=== PATIENT | male | born 1965 | race Caucasian/White ===

== ENCOUNTER 2021-07-18 08:52 | Emergency (ER) | payer SELFPAY ==
[2021-07-18 09:14] VITALS: BP 163/99; PULSE 71; TEMP 97.8; BMI 29.2
[2021-07-18 11:23] LABS: BASO % 0.8 % (0-2.0); EOS % 0.1 % (0-4.5); HEMATOCRIT 43.9 % (35.4-49); HEMOGLOBIN 14.9 GM/dL (11.7-16.9); LYMPH % 16.3 % (8-40); MCH 30.7 pg (25.7-33.7); MEAN CELL VOLUME 90.3 fl (80-96); MEAN PLT VOLUME 8.9 fl (7.5-11.1); MONO % 5.7 % (3.8-10.2); NEUT % 77.1 % (42.8-82.8); PLATELET COUNT 213 10^3/uL (134-434); RBC 4.86 M/mm3 (4.00-5.60); RDW 13.6 % (11.9-15.9); WHITE BLOOD COUNT 8.7 K/mm3 (4.0-10.0)
[2021-07-18 11:48] LABS: CHLORIDE 106 mmol/L (98-107); SODIUM 140 mmol/L (136-145)
[2021-07-18 11:50] LABS: ALBUMIN 3.7 g/dl (3.4-5.0); ANION GAP 8 MMOL/L (8-16); BLOOD UREA NITROGEN 9.5 mg/dL (7-18); CALCIUM 8.9 mg/dL (8.5-10.1); CO2 26 mmol/L (21-32); GLUCOSE,RANDOM 114 mg/dL (74-106)
[2021-07-18 11:53] LABS: CREATININE 0.8 mg/dL (0.55-1.3); SGOT/AST 23 U/L (15-37)
[2021-07-18 11:54] LABS: SGPT/ALT 56 U/L (13-61)
[2021-07-18 11:55] LABS: BILIRUBIN,TOTAL 0.6 mg/dL (0.2-1); TOT PROT 7.1 g/dl (6.4-8.2)
[2021-07-18 11:56] LABS: ALK PHOS 89 U/L (45-117)
== END 2021-07-18 12:12 ==
LOC: JER 08:52
DX: R42 Dizziness and giddiness (principal); R53.83 Other fatigue
CPT/HCPCS: 36415; 80053; 84484; 85025; 93005; 93010; 99284-25

== ENCOUNTER 2022-04-06 15:06 | Emergency (ER) | payer OTHER ==
[2022-04-06 15:28] VITALS: RESP 16; TEMP 97.9; BMI 27.3
[2022-04-06] MEDS ORDERED: DEXTROSE 50%-WATER 25 GM/50 ML DISP.SYRIN ONE (16:17)
[2022-04-06] MEDS ORDERED: ACETAMINOPHEN 1000 MG/100 ML BAG IVPB ONE (16:53)
[2022-04-06] MEDS ORDERED: ONDANSETRON 4 MG/2 ML VIAL IVPUSH ONE (16:53)
[2022-04-06] MEDS ORDERED: ACETAMINOPHEN INJECTION 100 ML IVPB ONE (16:58)
[2022-04-06] MEDS ORDERED: ONDANSETRON 4 MG/2 ML VIAL ONE (16:58)
[2022-04-06 17:27] LABS: EPI CELLS 22 /uL (0-25.1); HYALINE CASTS 7 /uL (0-3.1); URINE APPEARANCE CLEAR; URINE BACTERIA 83 /uL (0-1359); URINE BILIRUBIN NEGATIVE (NEGATIVE); URINE COLOR YELLOW; URINE GLUCOSE (UA) 1+ (NEGATIVE); URINE KETONE 1+ (NEGATIVE); URINE LEUK ESTERASE TRACE (NEGATIVE); URINE NITRITE NEGATIVE (NEGATIVE); URINE PROTEIN 1+ (NEGATIVE); URINE RBC 450 /uL (0-23.9); URINE WBC 38 /uL (0-25.8)
[2022-04-06 17:49] VITALS: BP 133/84; PULSE 67
[2022-04-06 18:06] LABS: BASO % 0.9 % (0-2.0); HEMATOCRIT 44.7 % (35.4-49); HEMOGLOBIN 14.9 GM/dL (11.7-16.9); LYMPH % 11.7 % (8-40); MCH 30.1 pg (25.7-33.7); MCHC 33.3 g/dl (32.0-35.9); MEAN CELL VOLUME 90.3 fl (80-96); MEAN PLT VOLUME 8.8 fl (7.5-11.1); MONO % 1.6 % (3.8-10.2); NEUT % 85.8 % (42.8-82.8); PLATELET COUNT 285 10^3/uL (134-434); RBC 4.95 M/mm3 (4.00-5.60); RDW 13.5 % (11.9-15.9); WHITE BLOOD COUNT 10.2 K/mm3 (4.0-10.0)
[2022-04-06 18:20] LABS: ALBUMIN 3.8 g/dl (3.4-5.0); BLOOD UREA NITROGEN 16.7 mg/dL (7-18)
[2022-04-06 18:24] LABS: BILIRUBIN,TOTAL 0.6 mg/dL (0.2-1)
[2022-04-06 18:25] LABS: TOT PROT 7.5 g/dl (6.4-8.2)
[2022-04-06 18:38] LABS: YEAST RARE (NEGATIVE)
[2022-04-06] MEDS ORDERED: KETOROLAC TROMETHAMINE 15 MG/ML VIAL IVPUSH ONE (20:43)
[2022-04-06] MEDS ORDERED: KETOROLAC TROMETHAMINE 15 MG/ML VIAL ONE (21:09)
== END 2022-04-06 22:06 | disposition home or self-care (01) ==
LOC: JER 15:06
PROC: 3E033GC Introduction of Other Therapeutic Substance into Peripheral Vein, Percutaneous Approach (ICD-10-PCS; principal; 2022-04-06)
DX: N13.2 Hydronephrosis with renal and ureteral calculous obstruction (principal)
CPT/HCPCS: 36415; 76775-TC; 76856-TC; 80053; 81003; 85025; 87086; 99284-25

== ENCOUNTER 2022-11-21 23:22 | Emergency (ER) | payer OTHER ==
[2022-11-21 23:29] VITALS: BP 144/88; PULSE 83; RESP 17; TEMP 98.7; BMI 29.2
[2022-11-22 02:36] LABS: BASO % 1.1 % (0-2.0); EOS % 1.8 % (0-4.5); HEMATOCRIT 40.7 % (35.4-49); HEMOGLOBIN 13.6 GM/dL (11.7-16.9); LYMPH % 31.4 % (8-40); MCH 29.7 pg (25.7-33.7); MCHC 33.5 g/dl (32.0-35.9); MEAN CELL VOLUME 88.8 fl (80-96); MEAN PLT VOLUME 7.7 fl (7.5-11.1); MONO % 7.8 % (3.8-10.2); NEUT % 57.9 % (42.8-82.8); PLATELET COUNT 318 10^3/uL (134-434); RBC 4.59 M/mm3 (4.00-5.60); RDW 13.5 % (11.9-15.9); WHITE BLOOD COUNT 7.1 K/mm3 (4.0-10.0)
[2022-11-22 03:04] LABS: CHLORIDE 105 mmol/L (98-107); SODIUM 140 mmol/L (136-145)
[2022-11-22 03:07] LABS: ANION GAP 6 MMOL/L (8-16); BLOOD UREA NITROGEN 21.8 mg/dL (7-18); CALCIUM 8.8 mg/dL (8.5-10.1); CO2 29 mmol/L (21-32); GLUCOSE,RANDOM 132 mg/dL (74-106)
[2022-11-22 03:08] LABS: ALBUMIN 3.4 g/dl (3.4-5.0)
[2022-11-22 03:10] LABS: CREATININE 0.9 mg/dL (0.55-1.3); SGOT/AST 45 U/L (15-37); SGPT/ALT 68 U/L (13-61)
[2022-11-22 03:12] LABS: ALK PHOS 116 U/L (45-117); BILIRUBIN,TOTAL 0.3 mg/dL (0.2-1); TOT PROT 6.9 g/dl (6.4-8.2)
[2022-11-22 03:15] LABS: N-TERMINAL BNP 19.3 pg/ml (5-125)
[2022-11-22 03:29] LABS: ERYTHROCYTE SEDIMENTATION RATE 2 mm/hr (0-20)
[2022-11-22] MEDS ORDERED: CEFUROXIME AXETIL 500 MG TABLET PO ONE (03:29)
[2022-11-22] MEDS ORDERED: CLINDAMYCIN HCL 150 MG CAPSULE (FP) PO ONE (03:40)
[2022-11-22] MEDS ORDERED: CLINDAMYCIN HCL 150 MG CAPSULE (FP) ONE (03:53)
== END 2022-11-22 04:41 | disposition home or self-care (01) ==
LOC: JER 23:22
DX: M79.89 Other specified soft tissue disorders (principal)
CPT/HCPCS: 36415; 80053; 83880; 85025; 85651; 85730; 86140; 93005; 93010; 93970-TC; 99285-25

== ENCOUNTER 2022-11-26 23:11 | Emergency (ER) | payer OTHER ==
[2022-11-26 23:23] VITALS: BP 120/74; PULSE 92; RESP 18; TEMP 97.9; BMI 29.2
== END 2022-11-27 02:00 | disposition home or self-care (01) ==
LOC: JER 23:11
DX: R60.0 Localized edema (principal)
CPT/HCPCS: 71046-TC-FY; 99283-25

== ENCOUNTER 2022-11-30 01:04 | Emergency (ER) | payer OTHER ==
[2022-11-30 01:16] VITALS: RESP 18; TEMP 98.1; BMI 29.2
[2022-11-30 03:57] LABS: BASO % 1.1 % (0-2.0); EOS % 1.7 % (0-4.5); HEMATOCRIT 38.4 % (35.4-49); HEMOGLOBIN 13.1 GM/dL (11.7-16.9); LYMPH % 28.2 % (8-40); MCHC 34.1 g/dl (32.0-35.9); MEAN PLT VOLUME 8.1 fl (7.5-11.1); MONO % 6.6 % (3.8-10.2); NEUT % 62.4 % (42.8-82.8); PLATELET COUNT 327 10^3/uL (134-434); RBC 4.37 M/mm3 (4.00-5.60); RDW 13.7 % (11.9-15.9)
[2022-11-30 04:17] LABS: ALBUMIN 3.5 g/dl (3.4-5.0); BLOOD UREA NITROGEN 23.2 mg/dL (7-18); CALCIUM 8.8 mg/dL (8.5-10.1)
[2022-11-30 04:20] LABS: CREATININE 0.9 mg/dL (0.55-1.3)
[2022-11-30 04:22] LABS: BILIRUBIN,TOTAL 0.4 mg/dL (0.2-1); TOT PROT 6.6 g/dl (6.4-8.2)
[2022-11-30] MEDS ORDERED: FUROSEMIDE 40 MG/4 ML INJECTABLE VIAL IVPUSH ONE (04:34)
[2022-11-30] MEDS ORDERED: FUROSEMIDE 40 MG/4 ML INJECTABLE VIAL ONE (04:44)
[2022-11-30 04:58] VITALS: BP 146/84; PULSE 72
== END 2022-11-30 06:24 | disposition home or self-care (01) ==
LOC: JER 01:04
PROC: 3E033GC Introduction of Other Therapeutic Substance into Peripheral Vein, Percutaneous Approach (ICD-10-PCS; principal; 2022-11-30)
DX: R22.43 Localized swelling, mass and lump, lower limb, bilateral (principal); R60.0 Localized edema
CPT/HCPCS: 36415; 80053; 85025; 93970-TC; 99284-25

== ENCOUNTER 2022-12-04 03:40 | Emergency (ER) | payer OTHER ==
[2022-12-04 03:55] VITALS: BP 150/91; PULSE 75; RESP 18; TEMP 98; BMI 29.2
== END 2022-12-04 05:39 | disposition home or self-care (01) ==
LOC: JER 03:40
DX: R22.43 Localized swelling, mass and lump, lower limb, bilateral (principal)
CPT/HCPCS: 99282-25

== ENCOUNTER 2023-02-18 23:15 | Emergency (ER) | payer OTHER ==
[2023-02-18 23:26] VITALS: BP 131/76; PULSE 55; RESP 18; TEMP 98; BMI 28.8
[2023-02-19 01:07] LABS: BASO % 0.3 % (0-2.0); EOS % 1.9 % (0-4.5); HEMOGLOBIN 13.9 GM/dL (11.7-16.9); LYMPH % 36.8 % (8-40); MCH 29.4 pg (25.7-33.7); MCHC 33.1 g/dl (32.0-35.9); MEAN CELL VOLUME 89.1 fl (80-96); MEAN PLT VOLUME 8.6 fl (7.5-11.1); MONO % 7.3 % (3.8-10.2); NEUT % 53.7 % (42.8-82.8); PLATELET COUNT 309 10^3/uL (134-434); RBC 4.72 M/mm3 (4.00-5.60); RDW 13.8 % (11.9-15.9); WHITE BLOOD COUNT 6.6 K/mm3 (4.0-10.0)
[2023-02-19 01:09] LABS: PH,URINE 5.5 (5.0-8.0); URINE APPEARANCE CLEAR; URINE BILIRUBIN NEGATIVE (NEGATIVE); URINE COLOR YELLOW; URINE GLUCOSE (UA) NEGATIVE (NEGATIVE); URINE KETONE NEGATIVE (NEGATIVE); URINE LEUK ESTERASE NEGATIVE (NEGATIVE); URINE NITRITE NEGATIVE (NEGATIVE); URINE PROTEIN NEGATIVE (NEGATIVE); URINE UROBILINOGEN 0.2 mg/dL (0.2-1.0)
[2023-02-19 01:24] LABS: POTASSIUM 4.5 mmol/L (3.5-5.1)
[2023-02-19 01:26] LABS: ALBUMIN 3.7 g/dl (3.4-5.0); BLOOD UREA NITROGEN 17.8 mg/dL (7-18); CALCIUM 9.1 mg/dL (8.5-10.1)
[2023-02-19 01:29] LABS: CREATININE 1.1 mg/dL (0.55-1.3)
[2023-02-19 01:31] LABS: BILIRUBIN,TOTAL 0.6 mg/dL (0.2-1); TOT PROT 7.2 g/dl (6.4-8.2)
[2023-02-19] MEDS ORDERED: KETOROLAC TROMETHAMINE 30 MG/1 ML VIAL IM ONE (03:46)
[2023-02-19] MEDS ORDERED: LIDOCAINE 5% TOPICAL PATCH TP ONE (03:46)
[2023-02-19] MEDS ORDERED: KETOROLAC TROMETHAMINE 30 MG/1 ML VIAL ONE (03:56)
[2023-02-19] MEDS ORDERED: LIDOCAINE 5% TOPICAL PATCH ONE (03:56)
[2023-02-19] MEDS ORDERED: LIDOCAINE PATCH REMOVAL MC SCH (22:00)
== END 2023-02-19 04:05 | disposition home or self-care (01) ==
LOC: JER 23:15 → JERFT 23:15 → JER 02-19 04:05
PROC: 3E0233Z Introduction of Anti-inflammatory into Muscle, Percutaneous Approach (ICD-10-PCS; principal; 2023-02-19)
DX: N20.0 Calculus of kidney (principal); R10.31 Right lower quadrant pain; R11.2 Nausea with vomiting, unspecified; R34 Anuria and oliguria
CPT/HCPCS: 36415; 74177-TC; 80053; 81003; 85025; 99285-25; Q9967

== ENCOUNTER 2023-04-02 00:45 | Emergency (ER) | payer OTHER ==
[2023-04-02 01:43] VITALS: BMI 60.3
[2023-04-02] MEDS ORDERED: IBUPROFEN 400 MG TABLET (FP) PO ONE ×2 (02:58→03:37)
[2023-04-02 05:23] VITALS: BP 135/75; PULSE 82; RESP 19; TEMP 98.5
== END 2023-04-02 05:23 | disposition home or self-care (01) ==
LOC: JER 00:45
DX: R05.9 Cough, unspecified (principal); R09.81 Nasal congestion; R51.9 Headache, unspecified; R50.9 Fever, unspecified; R53.1 Weakness; M79.10 Myalgia, unspecified site; Z20.822 Contact with and (suspected) exposure to COVID-19
CPT/HCPCS: 0241U-QW; 71046-TC-FY; 93005; 93010; 99285-25

== ENCOUNTER 2023-06-20 09:09 | Inpatient (IN) | payer OTHER ==
[2023-06-20 10:00] VITALS: BMI 32.2
[2023-06-20 10:55] LABS: BASO % 1.1 % (0-2.0); EOS % 0.4 % (0-4.5); HEMATOCRIT 41.6 % (35.4-49); HEMOGLOBIN 14.2 GM/dL (11.7-16.9); LYMPH % 13.2 % (8-40); MCH 29.5 pg (25.7-33.7); MCHC 34.2 g/dl (32.0-35.9); MEAN CELL VOLUME 86.2 fl (80-96); MEAN PLT VOLUME 7.9 fl (7.5-11.1); MONO % 3.9 % (3.8-10.2); NEUT % 81.4 % (42.8-82.8); PLATELET COUNT 273 10^3/uL (134-434); RBC 4.83 M/mm3 (4.00-5.60); RDW 15.2 % (11.9-15.9); WHITE BLOOD COUNT 8.6 K/mm3 (4.0-10.0)
[2023-06-20 11:26] LABS: POTASSIUM 4.5 mmol/L (3.5-5.1)
[2023-06-20 11:28] LABS: CALCIUM 9.3 mg/dL (8.5-10.1)
[2023-06-20 11:29] LABS: ALBUMIN 3.7 g/dl (3.4-5.0); BLOOD UREA NITROGEN 16.6 mg/dL (7-18); MAGNESIUM 2.1 mg/dL (1.8-2.4)
[2023-06-20 11:32] LABS: CREATININE 1.2 mg/dL (0.55-1.3)
[2023-06-20 11:34] LABS: BILIRUBIN,TOTAL 0.5 mg/dL (0.2-1)
[2023-06-20] MEDS: DEXTROSE 5%-0.45% SALINE 1,000 ML IV SCH (18:56)
[2023-06-20 19:41] LABS: N-TERMINAL BNP 27.4 pg/ml (5-125)
[2023-06-21 07:20] LABS: BASO % 1.3 % (0-2.0); EOS % 1.6 % (0-4.5); HEMATOCRIT 40.3 % (35.4-49); HEMOGLOBIN 13.2 GM/dL (11.7-16.9); LYMPH % 36.4 % (8-40); MCH 28.7 pg (25.7-33.7); MCHC 32.9 g/dl (32.0-35.9); MEAN CELL VOLUME 87.4 fl (80-96); MEAN PLT VOLUME 8.6 fl (7.5-11.1); MONO % 7.4 % (3.8-10.2); NEUT % 53.3 % (42.8-82.8); PLATELET COUNT 284 10^3/uL (134-434); RBC 4.61 M/mm3 (4.00-5.60); WHITE BLOOD COUNT 6.4 K/mm3 (4.0-10.0)
[2023-06-21 08:09] LABS: POTASSIUM 4.1 mmol/L (3.5-5.1)
[2023-06-21 09:00] LABS: CALCIUM 8.6 mg/dL (8.5-10.1)
[2023-06-21 09:01] LABS: ALBUMIN 3.2 g/dl (3.4-5.0); BLOOD UREA NITROGEN 13.9 mg/dL (7-18)
[2023-06-21 09:04] LABS: CREATININE 1.1 mg/dL (0.55-1.3)
[2023-06-21 09:05] LABS: BILIRUBIN,TOTAL 1.1 mg/dL (0.2-1)
[2023-06-21 09:06] LABS: TOT PROT 6.2 g/dl (6.4-8.2)
[2023-06-21] MEDS: ENOXAPARIN NA (PORCINE) 40 MG/0.4 ML DISP.SYRIN SQ SCH (09:32)
[2023-06-21] MEDS ORDERED: FLU VACCINE (FLULAVAL) PF 60 MCG/0.5 ML SYRINGE 2023-2024 IM ONE (10:00)
[2023-06-21] MEDS: DEXTROSE 5%-0.45% SALINE 1,000 ML IV SCH ×2 (18:02→23:29)
[2023-06-21] MEDS: ATORVASTATIN CA 40 MG TABLET (FP) PO SCH (21:22)
[2023-06-22] MEDS: ENOXAPARIN NA (PORCINE) 40 MG/0.4 ML DISP.SYRIN SQ SCH (10:48)
[2023-06-22] MEDS: ASPIRIN COATED 81 MG TABLET.EC PO SCH (10:48)
[2023-06-22] MEDS: DEXTROSE 5%-0.45% SALINE 1,000 ML IV SCH (17:39)
[2023-06-22] MEDS: ATORVASTATIN CA 40 MG TABLET (FP) PO SCH (22:00)
[2023-06-23] MEDS: ENOXAPARIN NA (PORCINE) 40 MG/0.4 ML DISP.SYRIN SQ SCH (10:12)
[2023-06-23] MEDS: ASPIRIN COATED 81 MG TABLET.EC PO SCH (10:12)
[2023-06-23] MEDS: ATORVASTATIN CA 40 MG TABLET (FP) PO SCH (22:23)
[2023-06-24] MEDS: ASPIRIN COATED 81 MG TABLET.EC PO SCH (10:56)
[2023-06-24] MEDS: ENOXAPARIN NA (PORCINE) 40 MG/0.4 ML DISP.SYRIN SQ SCH (10:56)
[2023-06-24] MEDS: ATORVASTATIN CA 40 MG TABLET (FP) PO SCH (22:01)
[2023-06-25] MEDS: ASPIRIN COATED 81 MG TABLET.EC PO SCH (11:40)
[2023-06-25] MEDS: ENOXAPARIN NA (PORCINE) 40 MG/0.4 ML DISP.SYRIN SQ SCH (11:40)
[2023-06-25 15:48] VITALS: RESP 19
[2023-06-25 18:32] VITALS: BP 136/81; PULSE 74; TEMP 98.6
== END 2023-06-25 17:00 | disposition home or self-care (01) | DRG 204 ==
LOC: JER 09:09 → JERBED 13:56 → OBSVTOIN 17:28 → J4W 22:04
PROVIDERS: ADMIT Internal Medicine; ATTEND Internal Medicine
DX: R55 Syncope and collapse (principal); I10 Essential (primary) hypertension; E78.5 Hyperlipidemia, unspecified; F31.9 Bipolar disorder, unspecified; R73.03 Prediabetes; Z59.00 Homelessness unspecified; G91.2 (Idiopathic) normal pressure hydrocephalus; N20.0 Calculus of kidney
CPT/HCPCS: 0241U-QW; 36415; 70450-TC; 70552-TC; 71045-TC-FY; 80053; 80061; 83036; 83735; 83880; 84439; 84443; 84484; 85025; 87635; 90686; 93005; 93010; 93306-TC; 93880-TC; 99285-25; G0008; G0378

== ENCOUNTER 2023-09-06 07:34 | Observation (INO) | payer OTHER ==
[2023-09-06 08:32] LABS: BASO % 0.4 % (0-2.0); EOS % 0.3 % (0-4.5); HEMATOCRIT 44.9 % (35.4-49); HEMOGLOBIN 15.4 GM/dL (11.7-16.9); LYMPH % 8.1 % (8-40); MCH 29.9 pg (25.7-33.7); MCHC 34.2 g/dl (32.0-35.9); MEAN CELL VOLUME 87.5 fl (80-96); MEAN PLT VOLUME 8.1 fl (7.5-11.1); MONO % 2.5 % (3.8-10.2); NEUT % 88.7 % (42.8-82.8); PLATELET COUNT 294 10^3/uL (134-434); RBC 5.13 M/mm3 (4.00-5.60); RDW 13.9 % (11.9-15.9); WHITE BLOOD COUNT 8.8 K/mm3 (4.0-10.0)
[2023-09-06 08:54] LABS: POTASSIUM 4.2 mmol/L (3.5-5.1)
[2023-09-06 08:58] LABS: ALBUMIN 3.6 g/dl (3.4-5.0); BLOOD UREA NITROGEN 16.5 mg/dL (7-18)
[2023-09-06 09:01] LABS: CREATININE 1.3 mg/dL (0.55-1.3)
[2023-09-06 09:02] LABS: BILIRUBIN,TOTAL 0.9 mg/dL (0.2-1)
[2023-09-06 09:03] LABS: TOT PROT 7.5 g/dl (6.4-8.2)
[2023-09-06] MEDS: ASPIRIN COATED 81 MG TABLET.EC PO SCH (12:26)
[2023-09-06] MEDS ORDERED: ASPIRIN 81 MG CHEWABLE TABLETS ONE ×2 (12:27→12:30)
[2023-09-06 14:37] VITALS: BMI 30.3
[2023-09-06] MEDS ORDERED: ATORVASTATIN CA 40 MG TABLET (FP) PO SCH (22:00)
[2023-09-07 07:35] LABS: POTASSIUM 4.3 mmol/L (3.5-5.1)
[2023-09-07 07:36] LABS: BASO % 0.7 % (0-2.0); EOS % 0.9 % (0-4.5); HEMATOCRIT 41.1 % (35.4-49); HEMOGLOBIN 13.8 GM/dL (11.7-16.9); LYMPH % 34.4 % (8-40); MCH 29.5 pg (25.7-33.7); MCHC 33.6 g/dl (32.0-35.9); MEAN CELL VOLUME 87.9 fl (80-96); MEAN PLT VOLUME 8.4 fl (7.5-11.1); MONO % 8.3 % (3.8-10.2); NEUT % 55.7 % (42.8-82.8); PLATELET COUNT 257 10^3/uL (134-434); RBC 4.67 M/mm3 (4.00-5.60); RDW 13.6 % (11.9-15.9)
[2023-09-07 07:38] LABS: BLOOD UREA NITROGEN 18.6 mg/dL (7-18); CALCIUM 8.3 mg/dL (8.5-10.1)
[2023-09-07 07:39] LABS: ALBUMIN 3.1 g/dl (3.4-5.0)
[2023-09-07 07:41] LABS: CREATININE 1.2 mg/dL (0.55-1.3)
[2023-09-07 07:43] LABS: BILIRUBIN,TOTAL 0.7 mg/dL (0.2-1); TOT PROT 6.2 g/dl (6.4-8.2)
[2023-09-07] MEDS: ASPIRIN COATED 81 MG TABLET.EC PO SCH (09:19)
[2023-09-07] MEDS ORDERED: ENOXAPARIN NA (PORCINE) 40 MG/0.4 ML DISP.SYRIN SQ SCH (10:00)
[2023-09-07 15:25] VITALS: RESP 20
[2023-09-07 18:35] VITALS: BP 131/88; PULSE 60; TEMP 98.4
== END 2023-09-07 18:50 | disposition home or self-care (01) ==
LOC: JER 07:34 → INTOOBSV 10:15 → UNDOADMOB 10:15 → JERBED 10:15 → OBSVTOIN 10:15 → J4W 14:13 → JERBED 14:13 → J4W 14:56 → JERBED 14:56
PROVIDERS: ADMIT Internal Medicine; ATTEND Internal Medicine
PROC: 3E023GC Introduction of Other Therapeutic Substance into Muscle, Percutaneous Approach (ICD-10-PCS; principal; 2023-09-06)
DX: R42 Dizziness and giddiness (principal); I10 Essential (primary) hypertension; E78.5 Hyperlipidemia, unspecified; N20.0 Calculus of kidney; F31.9 Bipolar disorder, unspecified; F25.9 Schizoaffective disorder, unspecified; Z87.891 Personal history of nicotine dependence
CPT/HCPCS: 0241U-QW; 36415; 70450-TC; 71045-TC-FY; 80053; 80061; 84484; 85025; 85379; 93005; 93010; 93880-TC; 96372; 99285-25; G0378

== ENCOUNTER 2023-12-25 01:32 | Emergency (ER) | payer OTHER ==
[2023-12-25 01:38] VITALS: BP 172/102; PULSE 86; RESP 17; TEMP 97.6; BMI 30.4
[2023-12-25] MEDS ORDERED: KETOROLAC TROMETHAMINE 15 MG/ML VIAL ONE (02:07)
[2023-12-25] MEDS ORDERED: ONDANSETRON 4 MG/2 ML VIAL ONE (02:07)
[2023-12-25] MEDS: KETOROLAC TROMETHAMINE 15 MG/ML VIAL IVPUSH ONE (02:27)
[2023-12-25] MEDS: ONDANSETRON 4 MG/2 ML VIAL IVPUSH ONE (02:28)
[2023-12-25 02:33] LABS: BASO % 0.9 % (0-2.0); EOS % 1.3 % (0-4.5); HEMATOCRIT 40.1 % (35.4-49); HEMOGLOBIN 13.9 GM/dL (11.7-16.9); LYMPH % 39.6 % (8-40); MCH 30.5 pg (25.7-33.7); MCHC 34.7 g/dl (32.0-35.9); MONO % 7.7 % (3.8-10.2); NEUT % 50.5 % (42.8-82.8); PLATELET COUNT 300 10^3/uL (134-434); RBC 4.56 M/mm3 (4.00-5.60); RDW 13.6 % (11.9-15.9); WHITE BLOOD COUNT 7.3 K/mm3 (4.0-10.0)
[2023-12-25 02:52] LABS: POTASSIUM 3.6 mmol/L (3.5-5.1)
[2023-12-25 02:54] LABS: ALBUMIN 3.9 g/dl (3.4-5.0); CALCIUM 9.3 mg/dL (8.5-10.1)
[2023-12-25 02:55] LABS: BLOOD UREA NITROGEN 21.9 mg/dL (7-18)
[2023-12-25 02:58] LABS: CREATININE 1.2 mg/dL (0.55-1.3)
[2023-12-25 02:59] LABS: TOT PROT 7.3 g/dl (6.4-8.2)
[2023-12-25] MEDS: SODIUM CHLORIDE 0.9% 500 ML INFUS.BAG IV ONE (03:00)
[2023-12-25 03:02] LABS: BILIRUBIN,TOTAL 0.8 mg/dL (0.2-1)
[2023-12-25 03:51] LABS: EPI CELLS 2 /uL (0-25.1); HYALINE CASTS 0 /uL (0-3.1); URINE APPEARANCE CLEAR; URINE BACTERIA 5 /uL (0-1359); URINE BILIRUBIN NEGATIVE (NEGATIVE); URINE COLOR YELLOW; URINE GLUCOSE (UA) NEGATIVE (NEGATIVE); URINE KETONE TRACE (NEGATIVE); URINE LEUK ESTERASE NEGATIVE (NEGATIVE); URINE NITRITE NEGATIVE (NEGATIVE); URINE PROTEIN NEGATIVE (NEGATIVE); URINE RBC 39 /uL (0-23.9); URINE WBC 7 /uL (0-25.8)
[2023-12-25] MEDS ORDERED: risperiDONE 0.5 MG TABLET ONE (04:03)
[2023-12-25] MEDS: risperiDONE 1 MG TABLET PO ONE (04:11)
[2023-12-25] MEDS: CITALOPRAM HYDROBROMIDE 20 MG TABLET PO ONE (04:11)
== END 2023-12-25 04:13 | disposition home or self-care (01) ==
LOC: JER 01:32
PROC: 3E0303Z Introduction of Anti-inflammatory into Peripheral Vein, Open Approach (ICD-10-PCS; principal; 2023-12-25)
PROC: 3E030GC Introduction of Other Therapeutic Substance into Peripheral Vein, Open Approach (ICD-10-PCS; 2023-12-25)
DX: R10.9 Unspecified abdominal pain (principal); R11.0 Nausea
CPT/HCPCS: 36415; 74176-TC; 80053; 81003; 85025; 87086; 99284-25

== ENCOUNTER 2023-12-26 02:08 | Emergency (ER) | payer OTHER ==
[2023-12-26 02:15] VITALS: BP 163/103; PULSE 86; RESP 20; TEMP 98.3; BMI 30.4
[2023-12-26] MEDS ORDERED: KETOROLAC TROMETHAMINE 30 MG/1 ML VIAL ONE (02:35)
[2023-12-26] MEDS: KETOROLAC TROMETHAMINE 30 MG/1 ML VIAL IM ONE (02:42)
[2023-12-26] MEDS ORDERED: TAMSULOSIN HCL 0.4 MG CAP ONE (02:46)
[2023-12-26] MEDS: TAMSULOSIN HCL 0.4 MG CAP PO ONE (02:48)
== END 2023-12-26 03:01 | disposition home or self-care (01) ==
LOC: JER 02:08
PROC: 3E023GC Introduction of Other Therapeutic Substance into Muscle, Percutaneous Approach (ICD-10-PCS; principal; 2023-12-26)
DX: R10.9 Unspecified abdominal pain (principal)
CPT/HCPCS: 99284-25

== ENCOUNTER 2023-12-26 23:31 | Emergency (ER) | payer OTHER ==
[2023-12-26 23:57] VITALS: BP 167/81; PULSE 100; RESP 20; TEMP 98.4; BMI 30.4
== END 2023-12-27 00:18 | disposition left against medical advice (07) ==
LOC: JER 23:31
DX: R07.9 Chest pain, unspecified (principal); R00.0 Tachycardia, unspecified; M54.9 Dorsalgia, unspecified
CPT/HCPCS: 93005; 93010; 99283-25